=== PATIENT | female | born 1965 | race Caucasian/White ===

== ENCOUNTER 2017-01-05 08:56 | Emergency (ER) | payer OTHER ==
[~2017-01-05] VITALS: Ht 162.6 cm; Wt 75.0 kg
[2017-01-05] MEDS ORDERED: ASPIRIN 325 MG TABLET PO ONE (10:00)
[2017-01-05 10:23] LABS: HEMOGLOBIN 15.8 g/dL (11.7-16.4); WHITE BLOOD COUNT 9.5 x10^3/uL (3.4-10)
[2017-01-05] MEDS ORDERED: SODIUM CHLORIDE 0.9% 1,000ML IVBOLUS ONE (10:30)
[2017-01-05 10:34] LABS: BLOOD UREA NITROGEN 12 mg/dL (7-18)
[2017-01-05 10:39] LABS: ASPARTATE AMINO TRANSFERASE 16 U/L (15-37)
[2017-01-05 10:40] LABS: IS PT STATUS REG ER OR PRE ER? YES
[2017-01-05] MEDS ORDERED: ASPIRIN 325 MG TABLET EC ONE (10:57)
[2017-01-05 12:16] VITALS: BP 124/77
== END 2017-01-05 12:18 | disposition home or self-care (01) ==
LOC: ED 10:47
DX: R07.89 Other chest pain (principal)
CPT/HCPCS: 36415; 71010; 80053; 82330; 82550; 83735; 84443; 84484; 85025; 93005; 96360; 99285; J7030